=== PATIENT | female | born 1965 | race Two or more races ===

== ENCOUNTER → 2024-08-23 07:49 | Outpatient (REF) | payer OTHER, SELFPAY | LOC: HWRCS 07:49 | PROVIDERS: ATTENDING PHYSICIAN Internal Medicine Interventional Cardiology; FAMILY PHYSICIAN Internal Medicine | DX: I25.10 Atherosclerotic heart disease of native coronary artery without angina pectoris (principal); I10 Essential (primary) hypertension; I25.5 Ischemic cardiomyopathy; E78.5 Hyperlipidemia, unspecified; I50.42 Chronic combined systolic (congestive) and diastolic (congestive) heart failure; Z00.00 Encounter for general adult medical examination without abnormal findings | CPT/HCPCS: 93306 ==